=== PATIENT | female | born 1990 | race Caucasian/White ===

== ENCOUNTER 2018-02-20 14:54 | Inpatient (IN) | payer OTHER ==
[2018-02-20] MEDS ORDERED: Betamet Acet/Betamet Na Ph 30 MG/5 ML VIAL ONE (16:23)
[2018-02-20] MEDS ORDERED: Labetalol HCl 100 MG/20 ML VIAL ONE (16:56)
[2018-02-20] MEDS ORDERED: hydrALAZINE 20 MG/ML VIAL ONE (16:56)
[2018-02-20] MEDS ORDERED: Betamet Acet/Betamet Na Ph 30 MG/5 ML VIAL IM SCH (17:00)
[2018-02-20] MEDS ORDERED: Dextrose 5%-Lactated Ringers 1,000 ML IV SCH (17:00)
[2018-02-20] MEDS ORDERED: hydrALAZINE 20 MG/ML VIAL SLOW IVP PRN ×2 (17:00→18:14)
[2018-02-20] MEDS ORDERED: Calcium Gluc 4.6 MEQ/10 ML (100 MG/ML) SLOW IVP PRN (17:01)
[2018-02-20] MEDS ORDERED: Promethazine HCl 25 MG/ML VIAL IM PRN (17:02)
[2018-02-20] MEDS ORDERED: Ondansetron HCl/PF 4 MG/2 ML Vial IVP PRN (17:02)
[2018-02-20 17:17] LABS: Hemoglobin 12.4 g/dL (12.0-16.0); Mean Corpuscular HGB CONC 34.9 g/dL (32.0-36.0); Mean Corpuscular Hemoglobin 29.2 pg (27.0-31.0); Mean Corpuscular Volume 83.6 fL (78.0-98.0); Mean Platelet Volume 10.9 fL (7.4-10.4); Platelet Count 139 thou/uL (130-400); RBC Distribution Width 12.6 % (11.5-14.5); Red Blood Cell (RBC) Count 4.25 mill/uL (4.20-5.40)
[2018-02-20 17:19] LABS: Uric Acid 6.1 mg/dL (2.6-6.0)
[2018-02-20] MEDS: Magnesium Sulfate 20 gm/500 ml 20 GM/500 ML BAG IVPB SCH (17:45)
[2018-02-20 17:47] LABS: Hep B Surf Ag Non-Reactive S/CO (NonReactive)
[2018-02-20 18:12] LABS: Syphilis Antibody Nonreactive (Nonreactive); Syphilis Antibody Index 0.04 S/CO (<1.00 Non-Reactive)
[2018-02-20 20:05] LABS: Creatinine, Urine 42.49 mg/dL (47-110)
[2018-02-20 20:43] VITALS: BMI 35.6
[2018-02-20] MEDS ORDERED: Labetalol 100 MG TAB PO SCH (21:00)
[2018-02-20] MEDS: Labetalol 100 MG TAB PO SCH (21:11)
[2018-02-20] MEDS: Dextrose 5%-Lactated Ringers 1,000 ML IV SCH (22:07)
[2018-02-21] MEDS: Magnesium Sulfate 20 gm/500 ml 20 GM/500 ML BAG IVPB SCH ×3 (02:40→22:25)
[2018-02-21] MEDS: Betamet Acet/Betamet Na Ph 30 MG/5 ML VIAL IM SCH (05:25)
[2018-02-21 07:42] LABS: #Lymphocytes 1.5 thou/uL (1.20-3.40); #Monocytes 0.2 thou/uL (0.11-0.59); #Neutrophils 11.3 thou/uL (1.40-6.50); %Basophils 0.1 % (0.0-1.0); %Eosinophils 0.1 % (0.0-10.0); %Lymphocytes 11.6 % (21.0-51.0); %Monocytes 1.6 % (0.0-10.0); %Neutrophils 86.7 % (42.0-75.0); Hemoglobin 13.5 g/dL (12.0-16.0); Mean Corpuscular Hemoglobin 28.9 pg (27.0-31.0); Platelet Count 152 thou/uL (130-400); RBC Distribution Width 12.8 % (11.5-14.5); Red Blood Cell (RBC) Count 4.68 mill/uL (4.20-5.40); White Blood Cell (WBC) Count 13.1 thou/uL (4.8-10.8)
[2018-02-21] MEDS: Labetalol 100 MG TAB PO SCH ×2 (09:53→21:30)
[2018-02-22 08:55] LABS: #Lymphocytes 1.4 thou/uL (1.20-3.40); #Monocytes 0.7 thou/uL (0.11-0.59); #Neutrophils 9.1 thou/uL (1.40-6.50); %Eosinophils 0.2 % (0.0-10.0); %Lymphocytes 12.3 % (21.0-51.0); %Monocytes 6.5 % (0.0-10.0); Hemoglobin 11.8 g/dL (12.0-16.0); Mean Corpuscular HGB CONC 34.4 g/dL (32.0-36.0); Mean Corpuscular Hemoglobin 28.8 pg (27.0-31.0); Mean Corpuscular Volume 83.7 fL (78.0-98.0); Mean Platelet Volume 9.5 fL (7.4-10.4); Platelet Count 154 thou/uL (130-400); RBC Distribution Width 12.9 % (11.5-14.5); Red Blood Cell (RBC) Count 4.09 mill/uL (4.20-5.40); White Blood Cell (WBC) Count 11.3 thou/uL (4.8-10.8)
[2018-02-22] MEDS: Labetalol 100 MG TAB PO SCH ×3 (09:07→20:34)
[2018-02-22] MEDS: Dextrose 5%-Lactated Ringers 1,000 ML IV SCH (17:26)
[2018-02-22] MEDS ORDERED: Zolpidem Tartrate 5 MG TAB PO PRN (21:56)
[2018-02-23] MEDS: hydrALAZINE 20 MG/ML VIAL SLOW IVP PRN ×6 (00:36→19:06)
[2018-02-23] MEDS: Labetalol 100 MG TAB PO SCH ×3 (08:46→21:51)
[2018-02-23 09:32] LABS: Collection Duration 24 hrs
[2018-02-23 09:33] LABS: Urine Total Volume 2000 mL (600-1600)
[2018-02-23 10:00] LABS: Protein - 24 Hr 4280 mg/24 hr (Less than 300); Protein, Urine 214 mg/dL (1-14)
[2018-02-23] MEDS ORDERED: Bicitra 30 ML UDCUP ONE (13:12)
[2018-02-23] MEDS ORDERED: CEFAZOLIN/Water 2 GM/20 ML SYRINGE ONE (13:12)
[2018-02-23] MEDS ORDERED: Ondansetron HCl/PF 4 MG/2 ML Vial ONE ×2 (13:53→15:26)
[2018-02-23] MEDS ORDERED: Ketorolac Tromethamine 30 MG/ML VIAL ONE ×2 (13:53→15:26)
[2018-02-23] MEDS ORDERED: PHENYLEPHRINE-NS 100 MCG/ML 10 ML SYRINGE ONE (13:53)
[2018-02-23] MEDS ORDERED: Morphine PF 1 MG/ML SYR ONE (13:53)
[2018-02-23] MEDS ORDERED: Lidocaine 1% PF 5 ML VIAL ONE (13:53)
[2018-02-23] MEDS ORDERED: Oxytocin 10 UNITS/ML VIAL ONE (13:53)
[2018-02-23] MEDS ORDERED: Bupivacaine 0.75% W/DEXTROSE 8.25% 2 ML AMP ONE (13:53)
[2018-02-23] MEDS ORDERED: Dexamethasone 4 mg/ml Vial ONE (13:53)
[2018-02-23 14:05] LABS: Hemoglobin 12.1 g/dL (12.0-16.0); Mean Corpuscular HGB CONC 34.6 g/dL (32.0-36.0); Mean Corpuscular Hemoglobin 29.4 pg (27.0-31.0); Mean Corpuscular Volume 85.2 fL (78.0-98.0); Platelet Count 153 thou/uL (130-400); RBC Distribution Width 13.1 % (11.5-14.5); White Blood Cell (WBC) Count 12.1 thou/uL (4.8-10.8)
[2018-02-23] MEDS ORDERED: Eucerin (Mineral Oil/Petrolatum,White) 30 gm Jar TOP PRN (14:22)
[2018-02-23] MEDS ORDERED: diphenhydrAMINE 50 MG/ML VIAL IVP PRN (14:22)
[2018-02-23] MEDS ORDERED: Naloxone HCl 0.4 mg/ml Vial IVP PRN ×2 (14:22)
[2018-02-23] MEDS ORDERED: Naloxone HCl 0.4 mg/ml Vial IV PRN (14:22)
[2018-02-23] MEDS ORDERED: Ondansetron HCl/PF 4 MG/2 ML Vial IVP PRN ×3 (14:22→15:43)
[2018-02-23] MEDS ORDERED: Ketorolac Tromethamine 30 MG/ML VIAL IVP PRN (14:22)
[2018-02-23] MEDS ORDERED: Promethazine HCl 25 MG/ML VIAL IM PRN (14:22)
[2018-02-23] MEDS ORDERED: Promethazine HCl 25 MG SUPP PR PRN (14:22)
[2018-02-23] MEDS ORDERED: HYDROmorphone 2 MG/ML VIAL SLOW IVP PRN (14:22)
[2018-02-23] MEDS ORDERED: Meperidine HCl/PF 25 MG/ML VIAL SLOW IVP PRN (14:22)
[2018-02-23] MEDS ORDERED: Ketorolac Tromethamine 30 MG/ML VIAL IVP SCH (14:30)
[2018-02-23] MEDS ORDERED: Communication Order-Pharmacy FS SCH (14:30)
[2018-02-23] MEDS ORDERED: Dexamethasone 20 MG/5 ML VIAL ONE (15:26)
[2018-02-23] MEDS ORDERED: Adacel (T-DAP) 0.5 ML VIAL IM ONE (15:43)
[2018-02-23] MEDS ORDERED: Acetaminophen 325 MG TAB PO PRN (15:43)
[2018-02-23] MEDS ORDERED: diphenhydrAMINE 25 MG CAP PO PRN (15:43)
[2018-02-23] MEDS ORDERED: Simethicone Chewable 80 MG TAB PO PRN (15:43)
[2018-02-23] MEDS ORDERED: Lanolin Ointment 7 GM TUBE TOP PRN (15:43)
[2018-02-23] MEDS ORDERED: Bisacodyl 10 MG SUPP PR PRN (15:43)
[2018-02-23] MEDS ORDERED: NS / Oxytocin 40 units/1000ml 1,000 ML IV SCH (15:45)
[2018-02-23] MEDS ORDERED: Lactated Ringer's 1,000 ML IV SCH (15:45)
[2018-02-23] MEDS ORDERED: hydrALAZINE 20 MG/ML VIAL SLOW IVP PRN (16:07)
[2018-02-23] MEDS ORDERED: Labetalol 100 MG TAB PO SCH (16:30)
[2018-02-23] MEDS ORDERED: Meperidine HCl/PF 25 MG/ML VIAL ONE (17:47)
--- NOTE | 2018-02-23 21:06 | OP ---
DATE OF PROCEDURE: 02/23/2018 ATTENDING STAFF PHYSICIAN: Bobby Lind M.D. SURGEONS: 1. Bobby Lind M.D. 2. Luisa Rogers DO POSTOPERATIVE DIAGNOSES: 1. intrauterine at 34 and 1/7 weeks. 2. Severe preeclampsia. 3. Remote from delivery. POSTOPERATIVE DIAGNOSES: 1. intrauterine at 34 and 1/7 weeks. 2. Severe preeclampsia. 3. Remote from delivery. PROCEDURE: Primary low transverse section. ANESTHESIA: Spinal catheterization. FINDINGS: 1. Severe pre-eclampsia with criteria including blood pressure, proteinuria, edema, and symptomatolo gy. 2. Vigorous male infant, 4 pounds 6 ounces, Apgars pending. 3. Normal uterus, tubes, and ovaries. SPECIMENS REMOVED: Cord blood. COMPLICATIONS: None. BLOOD LOSS: 500 mL (QBR 345 mL). HISTORY AND INDICATIONS: Mrs. Yenny Rosado is a very pleasant patient of [facility] followed at the [facility] for obstetric care. She is a 27-year-old white female, 2, para 0-0-1-0. She presented to the office on the afternoon of 10/21/2017 for routine visit. Her blood pressures were sign ificantly elevated with systolic pressures in the 170s and the diastolics in the 100-110 range. She had 3+ proteinuria on urinalysis. She was immediately sent to Labor and Delivery for evaluation and monitoring. Her first blood pressure on arrival was 180/110. She was extremely nervous and anxious as would be expected. We immediately treated her with hydralazine and ordered blood to confirm diagn osis of a with preeclampsia Her pressures were stabilized and her laboratory studi es returned with an elevated uric acid of 6.1 and a urine protein creatinine ratio of 0.41 and confir altagracia the diagnosis of preeclampsia. She was given steroids to enhance lung maturity and was st arted on magnesium sulfate for seizure prophylaxis and neuro protection. The patient remained stable and her blood pressures were treated until early on the morning of 02/23/2018. She required both la betalol and hydralazine treatment throughout the morning. A serial 24-hour urine collection had been ordered and also returned elevated at greater than 4 grams of proteinuria. A decision was made to p roceed with delivery in discussion with neonatology and the above findings. The patient was now ____ _ 72 hours with magnesium sulfate therapy for greater than 36 hours. The patient and her wer e counseled and questions were answered. Surgical disclosures were signed and placed in the chart. PROCEDURE: After thorough consent and counseling, Mrs. Rosado was taken to the operating room and adequate level of anesthesia was obtained via spinal catheterization. The patient was prepped and dr aped in the usual sterile fashion for abdominal surgery. A David was placed in the bladder, which wa s noted to be draining clear urine. Attention was then turned to performing the primary low transver se section. A Pfannenstiel incision was made, carried sharply to the fascia which was also sharply incised. The midline was identified and the rectus muscles were retracted laterally. The abdominal peritoneal cav ity was entered with usual safeguards carried out. A retractor was placed and a bladder flap was cre ated on the vesicouterine peritoneum. A bladder blade was then placed. A low transverse incision wa s made on the well-developed lower uterine segment. Upon entering the amniotic sac, there is copious amount of clear amniotic fluid visualized. The infant was noted to be vertex presentation in the oc ciput anterior position, still high in the pelvis. Head was delivered and baby was bulb suctioned on the abdomen. Shoulders and body were then delivered. The cord was doubly clamped and cut and the i nfant was handed to the neonatology team in attendance for the delivery. Dr. Serrato was the attendin is manager. The infant was a viable male weighing 4 pounds 6 ounces with Apgars pending. Cord blood was obtained. The placenta was manually removed from the uterus. The uterus was exteriorized and good tone was noted. The low transverse incision was closed with a running locking ligature of # 1 chromic. A second imbricating layer was placed to facilitate strength and hemostasis. The vesicou terine peritoneum was reapproximated to the lower segment with a running ligature of 2-0 Monocryl. G ood hemostasis was noted. The uterus, fallopian tubes and ovaries were inspected and all were noted to be normal. The posterior cul-de-sac and gutters were cleared of clot and fluid. The uterus was r eturned to the abdomen. Lap, sponge, and needle counts were correct. The peritoneum was then closed with a running ligature of 2-0 Vicryl. The rectus muscles were reapproximated in the midline with i nterrupted ligatures of 2-0 Vicryl. The fascia was closed with 2 ligatures of 0 Vicryl suture which were tied in the midline. Good fascial integrity was noted. The incision was again irrigated with c opious amount of warm normal saline. Hemostasis was obtained with Bovie cauterization. The subcutan eous tissue was closed with interrupted ligatures of 2-0 plain. The skin was then closed with a subc uticular stitch of 4-0 Monocryl and dressed with Dermabond. Lap, sponge, and needle counts were deena ect x3. Estimated blood loss during the surgical procedure was approximately 500 mL. Calculated QBL followin g the procedure was 345 mL The patient was taken to the recovery room in good condition. Immediately following surgery, the patient and family were made aware of the surgical procedure and o perative findings. Questions were answered to their satisfaction. The baby was stable and doing wel l in the intensive care unit under the care of Dr. Serrato. The patient and her family were very appreciative of the care received here at [facility].
[2018-02-23] MEDS ORDERED: Enoxaparin Sodium 30 MG/0.3 ML SYRINGE SC SCH (22:00)
[2018-02-24] MEDS ORDERED: Meperidine HCl/PF 25 MG/ML VIAL IM PRN (02:30)
[2018-02-24] MEDS ORDERED: Zolpidem Tartrate 5 MG TAB PO PRN ×2 (02:30)
[2018-02-24 06:12] LABS: #Lymphocytes 2.1 thou/uL (1.20-3.40); #Monocytes 0.8 thou/uL (0.11-0.59); #Neutrophils 8.1 thou/uL (1.40-6.50); %Basophils 0.2 % (0.0-1.0); %Eosinophils 0.2 % (0.0-10.0); %Lymphocytes 19.2 % (21.0-51.0); %Monocytes 7.4 % (0.0-10.0); Hemoglobin 11.5 g/dL (12.0-16.0); Mean Corpuscular Volume 85.3 fL (78.0-98.0); Platelet Count 149 thou/uL (130-400); RBC Distribution Width 12.9 % (11.5-14.5); Red Blood Cell (RBC) Count 3.94 mill/uL (4.20-5.40); White Blood Cell (WBC) Count 11.1 thou/uL (4.8-10.8)
[2018-02-24] MEDS: Ibuprofen 800 MG TAB PO SCH ×3 (07:36→22:18)
[2018-02-24] MEDS: Labetalol 100 MG TAB PO SCH ×4 (08:02→22:18)
[2018-02-24] MEDS: Betamet Acet/Betamet Na Ph 30 MG/5 ML VIAL IM SCH (08:02)
[2018-02-24] MEDS: Ferrous Sulfate 325 MG TAB PO SCH ×3 (08:03→22:11)
[2018-02-24] MEDS: Docusate Calcium (SURFAK) 240 MG CAP PO SCH ×3 (08:03→22:18)
[2018-02-24] MEDS: HYDROcodone/Acetaminophen 5/325 mg Tablet PO PRN ×3 (08:53→22:20)
[2018-02-24] MEDS: Prenatal Vitamin 1 TAB PO SCH (09:09)
[2018-02-24] MEDS ORDERED: Triamterene/Hydrochlorothiazide 37.5 mg/25 mg Tablet PO SCH (14:45)
[2018-02-25] MEDS: Ibuprofen 800 MG TAB PO SCH ×3 (05:54→20:59)
[2018-02-25] MEDS: Triamterene/Hydrochlorothiazide 37.5 mg/25 mg Tablet PO SCH (09:48)
[2018-02-25] MEDS: Labetalol 100 MG TAB PO SCH ×3 (09:48→20:59)
[2018-02-25] MEDS: Prenatal Vitamin 1 TAB PO SCH (09:48)
[2018-02-25] MEDS: Docusate Calcium (SURFAK) 240 MG CAP PO SCH ×2 (09:48→20:11)
[2018-02-25] MEDS: HYDROcodone/Acetaminophen 5/325 mg Tablet PO PRN ×3 (09:51→20:11)
[2018-02-25] MEDS: Ferrous Sulfate 325 MG TAB PO SCH (10:52)
[2018-02-26] MEDS: Ferrous Sulfate 325 MG TAB PO SCH ×3 (01:30→22:14)
[2018-02-26] MEDS: HYDROcodone/Acetaminophen 5/325 mg Tablet PO PRN ×3 (04:19→13:30)
[2018-02-26] MEDS: Ibuprofen 800 MG TAB PO SCH ×3 (04:55→22:12)
[2018-02-26] MEDS: Triamterene/Hydrochlorothiazide 37.5 mg/25 mg Tablet PO SCH (10:03)
[2018-02-26] MEDS: Labetalol 100 MG TAB PO SCH ×2 (10:03→22:11)
[2018-02-26] MEDS: Docusate Calcium (SURFAK) 240 MG CAP PO SCH ×2 (10:04→22:12)
[2018-02-26] MEDS: Prenatal Vitamin 1 TAB PO SCH (10:04)
[2018-02-26] MEDS ORDERED: Labetalol 100 MG TAB PO SCH (12:15)
[2018-02-27] MEDS: Ibuprofen 800 MG TAB PO SCH ×2 (04:35→14:07)
[2018-02-27] MEDS: HYDROcodone/Acetaminophen 5/325 mg Tablet PO PRN ×3 (04:35→14:07)
[2018-02-27] MEDS: Prenatal Vitamin 1 TAB PO SCH (08:53)
[2018-02-27] MEDS: Docusate Calcium (SURFAK) 240 MG CAP PO SCH (08:53)
[2018-02-27] MEDS: Labetalol 100 MG TAB PO SCH (08:53)
[2018-02-27] MEDS: Triamterene/Hydrochlorothiazide 37.5 mg/25 mg Tablet PO SCH (08:54)
[2018-02-27] MEDS: Ferrous Sulfate 325 MG TAB PO SCH (08:56)
[2018-02-27 11:47] VITALS: BP 126/76; TEMP 98.8
== END 2018-02-27 14:12 | disposition home or self-care (01) | DRG 766 ==
LOC: L&D/OP 14:54 → L&D 17:03 → OBSVTOIN 17:03 → L&D 02-23 19:11 → 3SW 02-24 05:49
PROVIDERS: ADMIT Obstetrics & Gynecology; ATTEND Obstetrics & Gynecology
PROC: 10D00Z1 Extraction of Products of Conception, Low, Open Approach (ICD-10-PCS; principal; 2018-02-23)
DX: O14.14 Severe pre-eclampsia complicating childbirth (principal); Z3A.33 33 weeks gestation of pregnancy; Z37.0 Single live birth
CPT/HCPCS: 36415; 51702; 81003; 82570; 83615; 84156; 84450; 84460; 84550; 85025; 85027; 86780; 86850; 86900; 86901; 87340; 90715; J0360; J0702; J1100; J1650; J1885; J2001; J2175; J2274; J2405; J2590; J3475; J3490

== ENCOUNTER 2018-04-03 05:59 | Emergency (ER) | payer OTHER ==
[2018-04-03] MEDS ORDERED: Morphine 2 MG/ML SYRINGE ONE (06:15)
[2018-04-03] MEDS ORDERED: Ondansetron HCl/PF 4 MG/2 ML Vial ONE (06:15)
[2018-04-03 06:52] LABS: #Basophils 0.1 thou/uL (0.0-0.2); #Eosinphils 0.1 thou/uL (0.0-0.7); #Lymphocytes 2.3 thou/uL (1.20-3.40); #Monocytes 0.5 thou/uL (0.11-0.59); #Neutrophils 8.1 thou/uL (1.40-6.50); %Basophils 0.7 % (0.0-1.0); %Eosinophils 0.7 % (0.0-10.0); %Lymphocytes 20.5 % (21.0-51.0); %Monocytes 4.7 % (0.0-10.0); %Neutrophils 73.5 % (42.0-75.0); Hemoglobin 13.4 g/dL (12.0-16.0); Mean Corpuscular HGB CONC 33.9 g/dL (32.0-36.0); Mean Corpuscular Hemoglobin 28.4 pg (27.0-31.0); Mean Corpuscular Volume 83.6 fL (78.0-98.0); Mean Platelet Volume 7.7 fL (7.4-10.4); Platelet Count 234 thou/uL (130-400); RBC Distribution Width 11.8 % (11.5-14.5); Red Blood Cell (RBC) Count 4.72 mill/uL (4.20-5.40); White Blood Cell (WBC) Count 11.1 thou/uL (4.8-10.8)
[2018-04-03 07:20] LABS: ALT (SGPT) 42 U/L (8-55); AST (SGOT) 27 U/L (5-34); Albumin 4.6 g/dL (3.5-5.0); Alkaline Phosphatase 108 U/L (40-150); Anion Gap 15 mmol/L (10-20); BUN (Urea Nitrogen) 11 mg/dL (7.0-18.7); Bilirubin, Total 0.3 mg/dL (0.2-1.2); Calc. Creatinine Clearance 0 mL/min (70-130); Carbon Dioxide 22 mmol/L (22-29); Chloride 105 mmol/L (98-107); Estimated GFR-MDRD Greater than 90; Globulin 3.1 g/dL (2.4-3.5); Glucose 105 mg/dL (70-105); Lipase 12 U/L (8-78); Potassium 3.8 mmol/L (3.5-5.1); Protein, Total 7.7 g/dL (6.0-8.3); Sodium 138 mmol/L (136-145)
[2018-04-03] MEDS ORDERED: Morphine 4 MG/ML VIAL ONE (07:26)
--- NOTE | 2018-04-03 08:09 | ULT ---
SONOGRAM ABDOMEN COMPLETE: Date: 04/03/18 HISTORY: Upper abdomen pain. FINDINGS: Multiple shadowing echogenic stones are apparent within the dependent portion of the gallbladder lume n. No gallbladder wall thickening or pericholecystic fluid. Common duct is 0.4 cm. Liver unremarkable without focal mass or intrahepatic biliary dilatation. No free fluid. Spleen measures up to 15.5 cm without focal abnormality. The kidneys and visualized portions of the abdominal aorta, IVC, and pancr eas are unremarkable. IMPRESSION: 1. Cholelithiasis. No evidence of acute biliary obstruction. 2. Moderate splenomegaly. Cause is not evident. POS: [facility]
== END 2018-04-03 07:58 | disposition home or self-care (01) ==
LOC: ERS 05:59
DX: K80.20 Calculus of gallbladder without cholecystitis without obstruction (principal)
CPT/HCPCS: 36415; 76700; 80053; 83690; 85025; 96374; 96375; 96376; J2270; J2405

== ENCOUNTER 2018-04-14 14:29 | Outpatient (CLI) | payer OTHER ==
[2018-04-14 15:05] LABS: #Basophils 0.1 thou/uL (0.0-0.2); #Eosinphils 0.1 thou/uL (0.0-0.7); #Lymphocytes 2.8 thou/uL (1.20-3.40); #Monocytes 0.6 thou/uL (0.11-0.59); #Neutrophils 4.5 thou/uL (1.40-6.50); %Eosinophils 0.7 % (0.0-10.0); %Lymphocytes 35.3 % (21.0-51.0); %Monocytes 6.9 % (0.0-10.0); %Neutrophils 56.1 % (42.0-75.0); Hemoglobin 14.2 g/dL (12.0-16.0); Mean Corpuscular HGB CONC 34.1 g/dL (32.0-36.0); Mean Corpuscular Hemoglobin 28.2 pg (27.0-31.0); Mean Corpuscular Volume 82.8 fL (78.0-98.0); Platelet Count 271 thou/uL (130-400); RBC Distribution Width 11.8 % (11.5-14.5); Red Blood Cell (RBC) Count 5.03 mill/uL (4.20-5.40); White Blood Cell (WBC) Count 7.9 thou/uL (4.8-10.8)
[2018-04-14 15:12] LABS: BHCG - Serum Negative (NEGATIVE); Pregs Control Background? CLEAR/WHITE (CLR/WHITE); Pregs Control Bar Appear? YES (CONTROL BAR)
[2018-04-14 15:26] LABS: ALT (SGPT) 41 U/L (8-55); AST (SGOT) 24 U/L (5-34); Albumin 4.9 g/dL (3.5-5.0); Alkaline Phosphatase 124 U/L (40-150); Anion Gap 16 mmol/L (10-20); BUN (Urea Nitrogen) 13 mg/dL (7.0-18.7); Bilirubin, Direct 0.1 mg/dL (0.1-0.3); Bilirubin, Total 0.3 mg/dL (0.2-1.2); Calc. Creatinine Clearance 0 mL/min (70-130); Calcium 9.2 mg/dL (7.8-10.44); Carbon Dioxide 20 mmol/L (22-29); Chloride 107 mmol/L (98-107); Estimated GFR-MDRD 85; Glucose 123 mg/dL (70-105); Potassium 4.1 mmol/L (3.5-5.1); Protein, Total 7.8 g/dL (6.0-8.3); Sodium 139 mmol/L (136-145)
== END 2018-04-14 14:30 | disposition home or self-care (01) ==
LOC: LABBT 14:29
PROVIDERS: ATTEND Surgery
DX: Z01.812 Encounter for preprocedural laboratory examination (principal); K80.20 Calculus of gallbladder without cholecystitis without obstruction
CPT/HCPCS: 80048; 80076; 84703; 85025

== ENCOUNTER 2018-04-15 08:11 | Day surgery (SDC) | payer OTHER ==
[2018-04-14 14:43] VITALS: BMI 31.7
[2018-04-15] MEDS ORDERED: CEFAZOLIN/Water 2 GM/20 ML SYRINGE ONE (08:56)
[2018-04-15] MEDS ORDERED: Fentanyl 100 MCG/2 ML VIAL ONE ×2 (10:01→11:38)
[2018-04-15] MEDS ORDERED: Bupivacaine/Epinephrine 0.25% 30 ML VIAL ONE (10:02)
[2018-04-15] MEDS ORDERED: HYDROcodone/Acetaminophen 5/325 mg Tablet ONE (12:18)
--- NOTE | 2018-04-15 13:40 | OP ---
DATE OF PROCEDURE: 04/15/2018 PREOPERATIVE DIAGNOSIS: Acute cholecystitis. POSTOPERATIVE DIAGNOSIS: Acute cholecystitis. PROCEDURE: Laparoscopic cholecystectomy. SURGEON: Dr. Jacky Hernandez ANESTHESIA: General. ESTIMATED BLOOD LOSS: Minimal. COMPLICATIONS: None. SPECIMEN: Gallbladder. FINDINGS: Cholecystitis. PROCEDURE IN DETAIL: The patient was taken to the Operating Room and laid supine on the Operating Saritha m table. After general anesthetic was obtained, the abdomen was prepped and draped in a sterile fashi on. A curved incision was made below the umbilicus. Cautery was used to dissect down to the umbilical fascia. Umbilical fascia was incised and held up using a Fabian. The abdominal cavity was entered us ing a Khushi clamp. Holding stitch of Vicryl was placed on each side of the fascia. Berumen trocar was placed. High-flow pneumoperitoneum was obtained. An upper midline 5-mm port and two right upper quadr ant 5-mm ports were placed under direct camera visualization. The gallbladder was retracted from the gallbladder fossa. The peritoneum of the gallbladder was opened anteriorly and posteriorly. The criti maria view triangle was seen showing only the cystic duct and cystic artery branching from medial to la teral. There were no other branching structures. Two clips were placed proximally on the cystic duct and one laterally. It was cut using laparoscopic scissors. The cystic artery was taken in the same wa y. Electrocautery was then used to dissect the gallbladder out of the gallbladder fossa. The gallblad riri was placed in an Endo catch bag and brought out through the Berumen. There was no bleeding or bile in the liver bed. The cystic duct stump and cystic artery stump were intact without evidence of extr avasation or bleeding. All port sites were infiltrated using local anesthesia. All ports were removed under camera visualization. Pneumoperitoneum was let down. The Vicryl was used to close the fascial defect below the umbilicus. All incisions were irrigated and closed using 4-0 Monocryl and DermaBond. The patient was en route to Recovery in stable condition. All instrument counts, needle counts and l ap counts were correct.
[2018-04-15] MEDS ORDERED: PROPOFOL 200 MG/20 ML VIAL ONE (16:37)
[2018-04-15] MEDS ORDERED: Glycopyrrolate 0.2 MG/ML 5 ML SYRINGE ONE (16:37)
[2018-04-15] MEDS ORDERED: Dexamethasone 20 MG/5 ML VIAL ONE (16:37)
[2018-04-15] MEDS ORDERED: Ketorolac Tromethamine 30 MG/ML VIAL ONE (16:37)
[2018-04-15] MEDS ORDERED: Ondansetron HCl/PF 4 MG/2 ML Vial ONE (16:37)
[2018-04-15] MEDS ORDERED: Lidocaine 1% PF 5 ML VIAL ONE (16:37)
== END 2018-04-15 12:50 | disposition home or self-care (01) ==
LOC: SDC 08:11
PROVIDERS: ATTEND Surgery
PROC: 0FT44ZZ Resection of Gallbladder, Percutaneous Endoscopic Approach (ICD-10-PCS; principal; 2018-04-15)
DX: K80.12 Calculus of gallbladder with acute and chronic cholecystitis without obstruction (principal); Z79.899 Other long term (current) drug therapy; Z01.812 Encounter for preprocedural laboratory examination
CPT/HCPCS: 80048; 80076; 84703; 85025; 88304; 96374; J1100; J1885; J2001; J2405; J2704; J3010

== ENCOUNTER 2018-05-16 16:54 | Observation (INO) | payer OTHER ==
[2018-05-16] MEDS ORDERED: Dextrose 5% in Water 1,000 ML IV PRN (17:40)
[2018-05-16] MEDS ORDERED: hydrALAZINE 20 MG/ML VIAL SLOW IVP PRN (17:40)
[2018-05-16] MEDS ORDERED: Ondansetron PF 4 MG/2 ML Vial IVP PRN (17:40)
[2018-05-16] MEDS ORDERED: Dextrose 50% Abboject 50 ML SYRINGE SLOW IVP PRN (17:40)
[2018-05-16] MEDS ORDERED: Acetaminophen 1,000 MG in Premix Bag 1 BAG IVPB PRN (17:40)
[2018-05-16] MEDS ORDERED: Ketorolac Tromethamine 30 MG/ML VIAL IVP PRN (17:40)
[2018-05-16] MEDS ORDERED: Calcium Carbonate 500 MG ChewTAB PO PRN (17:40)
[2018-05-16] MEDS ORDERED: Mag-Al 1200 mg/1200 mg/30 ML UDCUP PO PRN (17:40)
[2018-05-16] MEDS ORDERED: Promethazine HCl 25 MG/ML VIAL IM PRN (17:40)
[2018-05-16 18:04] VITALS: BMI 30.1
[2018-05-16] MEDS ORDERED: Morphine 4 MG/ML VIAL ONE (18:09)
[2018-05-16] MEDS: Piperacillin/Tazobactam 3.375 GM in Sodium Chloride 0.9% 100 ML IVPB SCH (18:44)
[2018-05-16] MEDS: D5 1/2 NS w/20 mEq KCL 1,000 ML IV SCH (18:44)
--- NOTE | 2018-05-16 22:04 | HP ---
CHIEF COMPLAINT: Jaundice. HISTORY OF PRESENT ILLNESS: This is a 27-year-old female who had laparoscopic cholecystectomy on for symptomatic gallstones. She now presents with recurrent symptoms, epigastric pain radiat es straight through to her back. I ordered outpatient labs earlier today, which revealed normal WBC and hemoglobin; however, her bilirubin is elevated to 4.4 as well as her AST, ALT, and alkaline phosp hatase. She is being admitted for presumed retained common duct stone. PAST MEDICAL HISTORY: Gallstones. PAST SURGICAL HISTORY: Right knee, D&C, laparoscopic cholecystectomy. MEDICINES TAKEN DAILY: vitamins, Flonase. ALLERGIES: No known drug allergies. SOCIAL HISTORY: Non-smoker. No alcohol. No other drugs. REVIEW OF SYSTEMS: Ten-system review of systems is otherwise negative. PHYSICAL EXAMINATION: HEENT: She has icteric sclerae. Her oropharynx is clear. NECK: No lymphadenopathy. CHEST: Clear. HEART: Regular rate and rhythm. ABDOMEN: Soft, nontender. All incisions are well healed. LABORATORY DATA: White blood cell count is 5, hemoglobin is 14, platelet count is 196, normal differ ential. Total bilirubin 4.4, alkaline phosphatase 295. AST and ALT are 180 and 596. ASSESSMENT: Elevated liver function tests with jaundice, status post laparoscopic cholecystectomy. Her liver function tests were not elevated preop. PLAN: I have discussed with Dr. Romero, who will see her for ERCP. Dr. Sams is going to see her for me this weekend.
[2018-05-17] MEDS: Piperacillin/Tazobactam 3.375 GM in Sodium Chloride 0.9% 100 ML IVPB SCH ×4 (00:41→18:14)
[2018-05-17] MEDS: D5 1/2 NS w/20 mEq KCL 1,000 ML IV SCH ×3 (04:46→22:37)
--- NOTE | 2018-05-17 06:17 | CON ---
DATE OF CONSULTATION: 05/16/2018 REFERRING PHYSICIAN: Dr. Jacky Hernandez. REASON FOR CONSULTATION: Abdominal pain, abnormal LFTs, indicative of possibly common bile duct stone. HISTORY OF PRESENT ILLNESS: Ms. Yenny Rosado is a very pleasant 27-year-old female seen in the room along with patient's , Sanchez. The patient underwent laparoscopic cholecystectomy by Dr. Jacky Hernandez, 3 weeks ago. She did well for 2 weeks. Over the last one week, she has been having abdominal pain, almost like what she had when she had the gallstones. The pain is over the right upper quadrant, point towards the back. She has had nausea. She has no vomiting. There is no history of fever or chills. The pain is worse after intake of food. She also noted some yellowish discoloration of eyes recently. The patient was seen by Dr. Jacky Hernandez this afternoon and had blood tests done. Her LFTs are markedly elevated. Her bilirubin has gone up to 4.5. Her AST is 180, ALT 596, alkaline phosphatase 295, albumin 4.6. The patient had received morphine and appears comfortable at the present time. She says mild pain off and on, but the pain is not as bad as before. She has no relevant history. ALLERGIES: None. SOCIAL HISTORY: The patient is . She does not smoke or drink alcohol. MEDICAL ILLNESSES: Preeclampsia and gestational diabetes with last and had a by Dr. Bobby Lind in 01/2018. She is not taking any medications at the present time. PAST SURGICAL HISTORY: No other previous surgeries. MEDICATIONS: List reviewed. REVIEW OF SYSTEMS: HEENT: No headache, no seizure disorder, no dizziness. Eyes: Site is normal. No diplopia. There is no loss of hearing. Nose: No nose bleed. No sore throat. Respiratory system: No history of chronic cough, hemoptysis, dyspnea. Cardiovascular system: No chest pain, no palpitation, no dyspnea, orthopnea or PND. GI and : As in history of present illness, unremarkable. Musculoskeletal/ Endocrine/Hematological/Neuro/Psychiatry: Unremarkable. PHYSICAL EXAMINATION: GENERAL: This is a very pleasant young female, who appears very comfortable. She has seen in the room along with patient's . VITAL SIGNS: Afebrile, pulse is 80, blood pressure is 140/93. HEENT: Conjunctivae icterus. NECK: Supple. No adenitis or thyromegaly noted. CARDIOVASCULAR SYSTEM: First and second heart sounds normal. LUNGS: Clear to auscultation. ABDOMEN: Soft. Abdomen is minimally tender over the right upper quadrant epigastric area. There is no rebound or guarding. Bowel sounds are active. EXTREMITIES: Reveal no edema. CLINICAL IMPRESSION: 1. A 27-year-old female, status post laparoscopic cholecystectomy, three weeks ago. At that time, her liver function tests were normal. She comes for abdominal pain, nausea, and elevated LFTs. She most likely has retained common bile duct stone. 2. Preeclampsia - gestational diabetes in her , 3 months ago. RECOMMENDATIONS: 1. Clear liquid diet today. 2. ERCP with stone extraction. I did go over the procedure in detail with the patient's and patient. I explained about the procedure and benefits in detail. I also explained the risks like bleeding, sepsis, and pancreatitis, etc. The patient understood the procedure well and agreeable. I will plan for ERCP tomorrow. MATT
[2018-05-17 06:24] LABS: #Eosinphils 0.1 thou/uL (0.0-0.7); #Lymphocytes 2.1 thou/uL (1.20-3.40); #Monocytes 0.4 thou/uL (0.11-0.59); %Eosinophils 2.2 % (0.0-10.0); %Lymphocytes 44.7 % (21.0-51.0); %Monocytes 8.1 % (0.0-10.0); Hemoglobin 12.2 g/dL (12.0-16.0); Mean Corpuscular HGB CONC 33.1 g/dL (32.0-36.0); Mean Corpuscular Hemoglobin 27.1 pg (27.0-31.0); Mean Platelet Volume 7.9 fL (7.4-10.4); Platelet Count 189 thou/uL (130-400); RBC Distribution Width 11.9 % (11.5-14.5); Red Blood Cell (RBC) Count 4.51 mill/uL (4.20-5.40); White Blood Cell (WBC) Count 4.6 thou/uL (4.8-10.8)
[2018-05-17 06:37] LABS: ALT (SGPT) 428 U/L (8-55); AST (SGOT) 120 U/L (5-34); Albumin 3.9 g/dL (3.5-5.0); Alkaline Phosphatase 234 U/L (40-150); Anion Gap 14 mmol/L (10-20); BUN (Urea Nitrogen) 4 mg/dL (7.0-18.7); Bilirubin, Total 4.4 mg/dL (0.2-1.2); Calc. Creatinine Clearance 188 mL/min (70-130); Calcium 8.9 mg/dL (7.8-10.44); Carbon Dioxide 22 mmol/L (22-29); Chloride 105 mmol/L (98-107); Estimated GFR-MDRD Greater than 90; Globulin 2.6 g/dL (2.4-3.5); Glucose 95 mg/dL (70-105); Lipase 12 U/L (8-78); Potassium 3.5 mmol/L (3.5-5.1); Protein, Total 6.5 g/dL (6.0-8.3); Sodium 137 mmol/L (136-145)
[2018-05-17] MEDS ORDERED: Morphine 2 MG/ML SYRINGE SLOW IVP PRN (08:00)
[2018-05-17] MEDS ORDERED: Morphine 4 MG/ML VIAL SLOW IVP PRN (08:00)
[2018-05-17] MEDS ORDERED: Fentanyl 100 MCG/2 ML VIAL ONE (09:29)
[2018-05-17] MEDS ORDERED: Iothalamate Meglumine 60% 50 ML VIAL FS ONE ×2 (09:33→12:31)
[2018-05-17] MEDS ORDERED: Indocyanine Green 25 MG/10 ML VIAL ONE (09:33)
[2018-05-17] MEDS ORDERED: Indomethacin 50 MG SUPP ONE (09:35)
[2018-05-17] MEDS ORDERED: Promethazine HCl 25 MG/ML VIAL SLOW IVP PRN (11:37)
[2018-05-17] MEDS ORDERED: HYDROmorphone 2 MG/ML VIAL SLOW IVP PRN (11:37)
[2018-05-17] MEDS ORDERED: Ondansetron HCl/PF 4 MG/2 ML Vial IVP PRN (11:37)
[2018-05-17] MEDS ORDERED: PACU-Morphine 4MG/ML VIAL SLOW IVP PRN (11:37)
[2018-05-17] MEDS ORDERED: Promethazine HCl 25 MG/ML VIAL IM PRN (11:37)
[2018-05-17] MEDS ORDERED: Ketorolac Tromethamine 30 MG/ML VIAL ONE (13:04)
[2018-05-17] MEDS ORDERED: PROPOFOL 200 MG/20 ML VIAL ONE (13:04)
[2018-05-17] MEDS ORDERED: Lidocaine 1% PF 5 ML VIAL ONE (13:04)
[2018-05-17] MEDS ORDERED: Ondansetron PF 4 MG/2 ML Vial ONE (13:04)
[2018-05-17] MEDS ORDERED: Dexamethasone 20 MG/5 ML VIAL ONE (13:04)
--- NOTE | 2018-05-17 13:32 | RAD ---
ERCP: Date: 05/17/18 HISTORY: Cholelithiasis. FINDINGS/IMPRESSION: Nine spot fluoroscopic intraoperative images during an ERCP demonstrate opacification of the common b ile duct and some of the hepatic ducts without persistent filling defects. POS: [facility]
--- NOTE | 2018-05-17 14:39 | PRG ---
DATE OF SERVICE: 05/17/2018 SUBJECTIVE: Ms. Rosado is a 27-year-old woman, who is 1-month status post laparoscopic cholecystec stephany. The patient presented with recurrent epigastric to right upper quadrant abdominal pain. Clini maria and radiographic examination was suspicious for acute choledocholithiasis. The patient is placed on observation. She underwent an uneventful ERCP today with extraction of common bile duct stone. She is awake and alert, reporting adequate pain control. PHYSICAL EXAMINATION: VITAL SIGNS: Currently includes blood pressure 120/80, pulse 78, respiratory rate is 18, temperature 98.5 degrees Fahrenheit, oxygen saturation 95% on room air. HEART: Reveals regular rate and rhythm, no murmurs or gallops auscultated. LUNGS: Clear to auscultation bilaterally. Breathing is regular and unlabored. ABDOMEN: Soft and mildly tender to palpation with no gross rebound tenderness present. NEUROLOGICAL EXAMINATION: Reveals no focal deficits present. LABORATORY FINDINGS: Today, which was the preprocedure labs includes the CBC with 4600 white blood c ells, hemoglobin and hematocrit 12.2 and 37.0 respectively. Platelet count is 189,000. Metabolic pr ofile: Sodium 137, potassium is 3.5, chloride is 105, bicarbonate 22, BUN 4, creatinine 0.63, glucos e 95, total bilirubin 4.4, AST and ALT 120 and 428 respectively. Serum alkaline phosphatase is 234. IMPRESSION: 1. Status post laparoscopic cholecystectomy. 2. Immediately status post endoscopic retrograde cholangiopancreatography with common bile duct ston e extraction. PLAN: Continue clear liquid diet. Advance diet as tolerated. The patient is to ambulate ad puja. W e will repeat laboratory studies tomorrow and trend LFTs. Anticipate discharge tomorrow.
[2018-05-17] MEDS ORDERED: Artificial Tear Sol 15 ML BOT EA EYE PRN (16:23)
[2018-05-18] MEDS: Piperacillin/Tazobactam 3.375 GM in Sodium Chloride 0.9% 100 ML IVPB SCH ×2 (00:19→05:34)
[2018-05-18] MEDS: D5 1/2 NS w/20 mEq KCL 1,000 ML IV SCH ×2 (04:06→05:35)
[2018-05-18 04:37] LABS: #Eosinphils 0.1 thou/uL (0.0-0.7); #Lymphocytes 2.4 thou/uL (1.20-3.40); #Monocytes 0.5 thou/uL (0.11-0.59); #Neutrophils 3.9 thou/uL (1.40-6.50); %Basophils 0.1 % (0.0-1.0); %Eosinophils 1.1 % (0.0-10.0); %Lymphocytes 35.3 % (21.0-51.0); %Monocytes 7.7 % (0.0-10.0); %Neutrophils 55.8 % (42.0-75.0); Hemoglobin 11.9 g/dL (12.0-16.0); Mean Corpuscular Hemoglobin 27.2 pg (27.0-31.0); Mean Corpuscular Volume 82.4 fL (78.0-98.0); Mean Platelet Volume 8.3 fL (7.4-10.4); Platelet Count 191 thou/uL (130-400); Red Blood Cell (RBC) Count 4.37 mill/uL (4.20-5.40); White Blood Cell (WBC) Count 6.9 thou/uL (4.8-10.8)
[2018-05-18 05:01] LABS: Anion Gap 13 mmol/L (10-20); BUN (Urea Nitrogen) 5 mg/dL (7.0-18.7); Calc. Creatinine Clearance 188 mL/min (70-130); Calcium 8.9 mg/dL (7.8-10.44); Carbon Dioxide 23 mmol/L (22-29); Chloride 108 mmol/L (98-107); Estimated GFR-MDRD Greater than 90; Glucose 87 mg/dL (70-105); Magnesium 1.8 mg/dL (1.6-2.6); Potassium 3.6 mmol/L (3.5-5.1); Sodium 140 mmol/L (136-145)
[2018-05-18 05:04] LABS: ALT (SGPT) 391 U/L (8-55); AST (SGOT) 143 U/L (5-34); Albumin 3.7 g/dL (3.5-5.0); Alkaline Phosphatase 213 U/L (40-150); Bilirubin, Direct 2.2 mg/dL (0.1-0.3); Bilirubin, Total 2.9 mg/dL (0.2-1.2); Lipase 341 U/L (8-78); Protein, Total 6.2 g/dL (6.0-8.3)
[2018-05-18 08:05] VITALS: BP 123/85; TEMP 98.5
--- NOTE | 2018-05-18 10:45 | PRG ---
DATE OF SERVICE: 05/18/2018 SUBJECTIVE: Ms. Yenny Rosado is a very pleasant 27-year-old female, status post laparosc opic cholecystectomy 3 weeks ago, that presented with abdominal pain, nausea, vomiting, and also abno rmal LFTs. The findings are suggestive of common bile duct stone. She underwent ERCP with papilloto my and stone extraction yesterday. She had done well overnight without any abdominal pain and nausea . She remains afebrile. The patient is actually doing well. She has had mild elevation of the lipa se, is probably asymptomatic, and more of biochemical elevation of lipase than acute pancreatitis. S he is actually feeling good. PHYSICAL EXAMINATION: GENERAL: Appears comfortable. VITAL SIGNS: Afebrile, pulse is 70, blood pressure 120/76. HEENT: Conjunctivae clear. CARDIOVASCULAR/LUNGS: Within normal limits. ABDOMEN: Soft. No organomegaly. No tenderness. No mass. LABORATORY DATA: CBC normal, WBC is 6900. Chemistry panel shows bilirubin dropping down and also th e LFTs are trending down. Lipase 341 today. RECOMMENDATIONS: 1. Regular diet. 2. The patient can be discharged home today. The patient will come back to me after Thanksdina oakley for a followup visit.
--- NOTE | 2018-05-19 02:04 | DIS-2 ---
DATE OF ADMISSION: 05/16/2018 DATE OF DISCHARGE: 05/18/2018 ADMITTING PHYSICIAN: Dr. Jacky Hernandez. DISCHARGING PHYSICIAN: Dr. Mk Sams. CONSULTATION: GI, Dr. Peggy Romero. PROCEDURE PERFORMED: Endoscopic retrograde cholangiopancreatography with stone evacuation on 018. HOSPITAL COURSE: Ms. Rosado is a 27-year-old female status post laparoscopic cholecystectomy on who is currently her first child, presented back to the emergency department o n the date of admission for acute abdominal pain. The patient has had no problems tolerating diet or with any pain up to this point. The patient was found to have retained common bile duct stone, with elevated bilirubin to 4.4 as well as a transaminitis and elevated alkaline phosphatase. She was adm itted to the surgery mckeon. Dr. Romero with GI was consulted and completed an ERCP that did demons trate a retained common bile duct stone on 05/17/2018, this was evacuated. Patient's pain was greatl y improved. She was able to tolerate a clear liquid diet and then a full diet. She states that she is ready to go home. She has already followed up with Dr. Hernandez for GI. The patient's vital signs have remained stable and she has a follow up with GI after the . On the date of discharge, the patient has been ambulatory, has no distress, no abdominal pain and is tolerating her diet. The patient endorses wanting to go home. The patient was seen at the bedside with her bryan banuelos. DISCHARGE MEDICATIONS: 1. vitamins. 2. Flonase. 3. Tylenol as needed for pain. The patient will be discharged to home. PHYSICAL EXAMINATION: VITAL SIGNS: On the date of discharge, temperature is 98.4, blood pressure 122/82, heart rate is 74, respiratory rate of 16. She is 98% on room air. GENERAL: A 27-year-old female sitting up in bed, in no acute distress. HEENT: Normocephalic, atraumatic. Trachea is midline. NECK: No JVD is appreciated. RESPIRATORY: Equal rise and fall. Bilateral breath sounds. Clear to auscultation upper and lower l obe bilaterally. CARDIOVASCULAR: Regular rate and rhythm. No murmurs are appreciated. Strong pulses. ABDOMEN: Obese. Her surgery sites are intact, has no pain, no grimace, no masses or guarding. PELVIS: Deferred. MUSCULOSKELETAL: Moves extremities well. PSYCHIATRIC: Normal mood and affect. NEUROLOGIC: Alert and oriented to person, place, time, and event. SKIN: [place], warm, and dry. LABORATORY DATA: At the date of discharge, white blood cell count is 6.9, platelets are 191, hemoglo bin and hematocrit 11.9 and 36.0 respectively. Chemistry: Sodium is 140, potassium is 3.6, chloride is 108, CO2 is 23, creatinine is 0.63, and a glucose of 87, BUN is 5. Her direct bilirubin is 2.2, total bilirubin is 2.9, which has improved from 4.4 on arrival. AST and ALT 143 and 391 respectively and alkaline phosphatase is 213. Patient's lipase is 341. Again, the patient will be discharged home. Follow up will be with Dr. Romero. Dr. Hernandez as ne eded. We have answered all questions with the patient at bedside. Patient was given strict return p recautions if any symptoms do arise. She verbalized understanding of the same. She was seen with he r . The patient was evaluated by Dr. Mk Sams. Greater than 30 minutes was taken in discharge planning of this patient.
--- NOTE | 2018-05-19 15:55 | OP ---
DATE OF PROCEDURE: 05/17/2018 OPERATIVE PROCEDURE: Endoscopic retrograde cholangiopancreatography with papillotomy, endoscopic retrograde cholangiopancreatography with balloon extraction of the common bile duct stone with a balloon size 12-15 mm. PREOPERATIVE DIAGNOSIS: A 27-year-old female status post laparoscopic cholecystectomy three weeks ago. She comes back with abdominal pain, nausea, and the pain is similar to the pain she had before the surgery and also has elevated LFTs. The symptoms are strongly suggestive of common bile duct stone. POSTOPERATIVE DIAGNOSES: 1. Normal caliber common bile duct. 2. Extraction of pigmented stone, 1.5 cm size. PROCEDURE IN DETAIL: The patient was intubated and was given sedation by Anesthesia Department. A bite block was placed. A PentWanelo video duodenoscope under direct vision was passed down the oropharynx, past the GE junction, into the stomach and subsequently into descending duodenum. The papilla was cannulated. The papilla appeared flat and there is no bile drainage noted. The cannulation was achieved over a guidewire very easily. However, the fluoroscopy showed the guidewire to go into the pancreatic duct. There is only once injection given in to the pancreatic duct. Subsequently, flouroscopy used to guide the wire. The procedure was somewhat difficult because of the wire kept going into the pancreatic duct. The scope was in good position and the papilla was at 12 o'clock and easily cannulated with guidewire. Everytime the guidewire was advanced into the pancreatic duct. There is no injection given. . Finally, was able to cannulate the bile duct selectively. Injection of the common bile duct does show normal caliber bile duct, but does show a filling defect seen. A generous papillotomy made at 12 o'clock position. Following the papillotomy, there is brisk biliary drainage noted. The bile appears to be very clear. There is one small tiny stone came out. Subsequently , a biliary balloon size 12 mm and 15 mm placed in the bile duct and the duct was swept several times_. There is a large pigmented stones came out. Subsequently, occlusion cholangiogram shows no more filling defects. The bile duct is emptied very promptly. The stomach was decompressed. The scope removed. RECOMMENDATIONS: 1. Repeat LFTs tomorrow. 2. . If the patient has no untoward side effects, may consider discharge home. [facility]
== END 2018-05-18 10:15 | disposition home or self-care (01) ==
LOC: SURG A 17:36
PROVIDERS: ADMIT Surgery; ATTEND Surgery
PROC: 0FC98ZZ Extirpation of Matter from Common Bile Duct, Via Natural or Artificial Opening Endoscopic (ICD-10-PCS; principal; 2018-05-17)
DX: K80.50 Calculus of bile duct without cholangitis or cholecystitis without obstruction (principal)
CPT/HCPCS: 36415; 74330; 80048; 80053; 80076; 83690; 83735; 84100; 85025; 96361; 96365; 96366; 96375; 96376; C1769; G0378; J0131; J0360; J1100; J1610; J1885; J2001; J2270; J2405; J2543; J2704; J3010; J7050; Q9961

== ENCOUNTER 2020-04-01 02:30 | Inpatient (IN) | payer OTHER ==
[2020-04-01 03:34] VITALS: BMI 37.2
[2020-04-01] MEDS ORDERED: Ondansetron PF 4 MG/2 ML Vial IVP PRN ×4 (03:45→07:34)
[2020-04-01] MEDS ORDERED: hydrALAZINE 20 MG/ML VIAL SLOW IVP PRN ×2 (03:45→07:34)
[2020-04-01] MEDS ORDERED: Bicitra 30 ML UDCUP PO SCH (03:45)
[2020-04-01] MEDS ORDERED: Ampicillin 2 GM in Sodium Chloride 0.9% 100 ML IVPB SCH (03:45)
[2020-04-01] MEDS ORDERED: Azithromycin 500 MG in Sodium Chloride 0.9% 250 ML 250 ML IVPB SCH (03:45)
[2020-04-01] MEDS ORDERED: CEFAZOLIN 2 GM in Premix Bag 1 BAG IVPB SCH (03:45)
[2020-04-01] MEDS ORDERED: Lactated Ringer's 1,000 ML IV SCH (03:45)
[2020-04-01] MEDS ORDERED: Promethazine HCl 25 MG/ML VIAL IM PRN ×3 (03:45→07:20)
[2020-04-01 04:17] LABS: Hemoglobin 9.2 g/dL (12.0-16.0); Mean Corpuscular HGB CONC 32.7 g/dL (32.0-36.0); Mean Corpuscular Hemoglobin 24.2 pg (27.0-31.0); Mean Corpuscular Volume 73.9 fL (78.0-98.0); Mean Platelet Volume 11.3 fL (7.4-10.4); Platelet Count 182 thou/uL (130-400); RBC Distribution Width 14.8 % (11.5-14.5); Red Blood Cell (RBC) Count 3.81 mill/uL (4.20-5.40); White Blood Cell (WBC) Count 10.9 thou/uL (4.8-10.8)
[2020-04-01 04:52] LABS: HBSAg Index 0.21 S/CO (0-0.99); Hep B Surf Ag Non-Reactive S/CO (NonReactive); Syphilis Antibody Nonreactive (Nonreactive); Syphilis Antibody Index 0.03 S/CO (<1.00 Non-Reactive)
[2020-04-01] MEDS ORDERED: ePHEDrine 50 MG/ML VIAL ONE (06:01)
[2020-04-01] MEDS ORDERED: Ondansetron PF 4 MG/2 ML Vial ONE (06:01)
[2020-04-01] MEDS ORDERED: Oxytocin 10 UNITS/ML VIAL ONE ×2 (06:01→07:08)
[2020-04-01] MEDS ORDERED: Meperidine HCl/PF 25 MG/ML VIAL SLOW IVP PRN ×2 (06:27→07:20)
[2020-04-01] MEDS ORDERED: L&D-Morphine 4 MG/ML VIAL SLOW IVP PRN ×2 (06:27→07:20)
[2020-04-01] MEDS ORDERED: Ondansetron HCl/PF 4 MG/2 ML Vial IVP PRN ×2 (06:27→07:20)
[2020-04-01] MEDS ORDERED: HYDROmorphone 2 MG/ML VIAL SLOW IVP PRN ×2 (06:27→07:20)
[2020-04-01] MEDS ORDERED: Promethazine HCl 25 MG SUPP PR PRN ×2 (06:28→07:20)
[2020-04-01] MEDS ORDERED: Naloxone HCl 0.4 mg/ml Vial IV PRN ×2 (06:28→07:20)
[2020-04-01] MEDS ORDERED: Naloxone HCl 0.4 mg/ml Vial IVP PRN ×4 (06:28→07:20)
[2020-04-01] MEDS ORDERED: Communication Order-Pharmacy FS SCH ×2 (06:30→07:30)
[2020-04-01] MEDS ORDERED: Methylergonovine 0.2 MG/ML VIAL ONE (06:39)
[2020-04-01] MEDS ORDERED: Carboprost 250 MCG/ML AMP ONE (06:39)
[2020-04-01] MEDS ORDERED: diphenhydrAMINE 50 MG/ML VIAL IVP PRN (07:20)
[2020-04-01] MEDS ORDERED: Meperidine HCl/PF 25 MG/ML VIAL IM PRN (07:34)
[2020-04-01] MEDS ORDERED: diphenhydrAMINE 25 MG CAP PO PRN (07:34)
[2020-04-01] MEDS ORDERED: Acetaminophen 325 MG TAB PO PRN (07:34)
[2020-04-01] MEDS ORDERED: Bisacodyl 10 MG SUPP PR PRN (07:34)
[2020-04-01] MEDS ORDERED: Misoprostol 200 MCG TAB PR PRN (07:34)
[2020-04-01] MEDS ORDERED: Lanolin Ointment 7 GM TUBE TOP PRN (07:34)
[2020-04-01] MEDS ORDERED: NS / Oxytocin 40 units/1000ml 1,000 ML IV SCH (07:45)
[2020-04-01 08:47] LABS: SARS-CoV-2 NAA Rapid Test Not Detected (NotDetected)
[2020-04-01] MEDS ORDERED: FLU VACC QS2020-21(6MOS UP)/PF 60 MCG/0.5 ML SYRINGE IM ONE (09:00)
[2020-04-01] MEDS: Prenatal Vitamin 1 TAB PO SCH (11:22)
[2020-04-01] MEDS: Ferrous Sulfate 325 MG TAB PO SCH ×2 (11:22→21:19)
[2020-04-01] MEDS: Docusate Calcium (SURFAK) 240 MG CAP PO SCH ×2 (11:22→21:19)
[2020-04-01] MEDS ORDERED: Morphine 2 MG/ML VIAL SLOW IVP PRN (13:20)
--- NOTE | 2020-04-01 13:30 | OP ---
DATE OF PROCEDURE: 04/01/2020 PREOPERATIVE DIAGNOSES: 1. Twin gestation at 35 and 5/7th weeks. 2. spontaneous rupture of membranes. 3. Prior section. POSTOPERATIVE DIAGNOSES: 1. Twin gestation at 35 and 5/7th weeks. 2. spontaneous rupture of membranes. 3. Prior section. PROCEDURE PERFORMED: Repeat low-transverse section. ANESTHESIA: Spinal catheterization. FINDINGS: 1. Twin gestation, dichorionic-diamniotic. 2. Spontaneous rupture of membranes. 3. Minimal scarring and adhesions from previous. 4. Twin A, female , 6 pounds 4 ounces, Apgars 6 and 8; twin B, male infant, 5 pounds 14 ounces, Apgars 7 and 8. 5. Normal uterus, tubes, and ovaries. COMPLICATIONS: None. SPECIMENS REMOVED: Cord blood and then placenta to pathology secondary to delivery and twin gestation. ESTIMATED BLOOD LOSS: Approximately 800 mL (QBL pending). HISTORY AND INDICATIONS: Mrs. Yenny Rosado is a very pleasant 29-year-old white female, 3, para 0-1-1-1, who is followed in my clinic for obstetric care. Her is complicated by di-di twin gestation, history of preeclampsia, previous , gestational hypertension, and gestational diabetes. She received excellent care. She has been undergoing testing weekly secondary to twins and gestational hypertension. Yenny was seen yesterday for visit. Her blood pressures were creeping up slightly and decision was made to proceed with steroids secondary to her history of preeclampsia and delivery. We also increased her blood pressure medications for her gestational hypertension. NST was reactive. She was sent home to bed rest for followup on Saturday. The patient called at approximately 2:30 this morning, complaining of leaking fluid. She was instructed to present to Labor and Delivery, where PSROM was confirmed. She was given antibiotics for GBS prophylaxis secondary to unknown status. She was prepared for repeat . Questions were answered to the patient and family satisfaction. Surgical disclosures were signed and placed in the chart. DESCRIPTION OF PROCEDURE: After thorough consent and counseling, Mrs. Rosado was taken to the operating room and an adequate level of anesthesia was obtained via spinal catheterization. The patient was prepped and draped in usual sterile fashion for abdominal surgery. A David was placed in the bladder, which was drained of clear urine. A team time-out was performed per protocol. Attention was then turned to performing the repeat low-transverse section. A Pfannenstiel incision was made and the old scar was excised. The incision was carried sharply to the fascia, which was also sharply incised. The midline was identified and the rectus muscles were retracted laterally. A retractor was placed and a bladder flap was created on the vesicouterine peritoneum. A bladder blade was then placed. A low-transverse incision was made on the well-developed lower uterine segment. Upon entering the amniotic sac of twin A, a copious amount of very lightly stained meconium fluid was noted. The infant was noted to be in juan maneul breech presentation. The breech was carefully delivered in an atraumatic fashion. Shoulders and after coming head were then delivered using the Marceau maneuver. The cord was doubly clamped and cut. The was handed to the Neonatology Team in attendance for the delivery. Attention was then turned to delivery of twin B. Amniotomy was performed and once again, very lightly stained meconium fluid was noted. Twin B was footling breech. The breech was also delivered in an atraumatic fashion and the shoulders and after coming head spontaneously delivered without effort. The cord was doubly clamped and cut. The infant was handed to the second Neonatology Team in attendance for the delivery. Twin A was a vigorous female, weighing 6 pounds 4 ounces with Apgars of 6 and 8 obtained at one and five minutes respectively. Twin B was a vigorous viable male, weighing 5 pounds 14 ounces with Apgars of 7 and 8 obtained at one and five minutes respectively. Both infants were vigorously cleaned and dried on the table. There was vigorous crying noted from both of the babies. Their color was good when they were handed to the Anesthesia Team. The placenta was then manually removed from the uterus. The placenta will be sent to Pathology for evaluation secondary to delivery and dichorionic-diamniotic placentation. The uterus was exteriorized and poor tone was noted. The uterine cavity was cleared of clot and fluid. The low-transverse incision was then packed and vigorous massage was performed. We continued packing until the tone improved. The low-transverse incision was then closed with a running locking ligature of #1 chromic. A second imbricating layer was placed to facilitate strength and hemostasis. The vesicouterine peritoneum was reapproximated to the lower segment. The posterior cul-de-sac and gutters were cleared of clot and fluid. The uterus, fallopian tubes, and ovaries were normal in appearance and no pathology were identified. Seprafilm was applied to the low-transverse incision and to the anterior aspect of the uterus for adhesion prevention. The uterus was returned to the abdomen and good tone and hemostasis was appreciated. The incision was carefully inspected and noted to be hemostatic. Lap, sponge, and needle counts were correct. The peritoneum was then closed with a running ligature of 2-0 Vicryl suture. The rectus muscles were reapproximated in the midline with interrupted ligatures of both 2-0 Vicryl and #1 chromic suture. The fascia was then closed with two ligatures of 0 Vicryl suture, which were tied in the midline. Good fascial integrity was appreciated. The incision was irrigated with copious amount of warm normal saline. Hemostasis of the subcutaneous tissue was obtained with Bovie cauterization. The subcutaneous tissue was then closed in multiple layers with interrupted ligatures of 2-0 plain. The skin was closed with a subcuticular stitch of 4-0 Monocryl. Pressure dressing and ice packs were subsequently placed. Lap, sponge, and needle counts were correct x3. The estimated blood loss was approximately 800 mL. QBL was pending and there were some questions about fluid, which spilled both off the table and on the table. Team debriefing was performed. The patient was taken to the recovery room in good condition. Immediately following surgery, the patient and family were made aware of the surgical procedure and operative findings. Questions were answered to their satisfaction. The babies were both stable and doing well in the NICU. The patient and her very appreciative of the care rendered here at [facility] this morning. Job ID: [id number] [facility]
[2020-04-01] MEDS ORDERED: Ketorolac Tromethamine 30 MG/ML VIAL IVP PRN (15:00)
[2020-04-01] MEDS ORDERED: Sodium Chloride 0.9% 10 ML ONE (16:02)
[2020-04-01] MEDS: Ibuprofen 800 MG TAB PO SCH ×2 (16:49→21:18)
[2020-04-01] MEDS: Lactated Ringer's 1,000 ML IV SCH ×2 (16:49→18:03)
[2020-04-01] MEDS ORDERED: Zolpidem Tartrate 5 MG TAB PO PRN (19:00)
[2020-04-01] MEDS ORDERED: HYDROcodone/Acetaminophen 5/325 mg Tablet PO PRN (19:00)
[2020-04-02] MEDS: diphenhydrAMINE 50 MG/ML VIAL IVP PRN ×2 (02:17→07:30)
[2020-04-02] MEDS: Lactated Ringer's 1,000 ML IV SCH ×4 (05:16→20:49)
[2020-04-02 05:55] LABS: Hemoglobin 9.3 g/dL (12.0-16.0); Mean Corpuscular HGB CONC 32.7 g/dL (32.0-36.0); Mean Corpuscular Hemoglobin 24.2 pg (27.0-31.0); Mean Corpuscular Volume 74.1 fL (78.0-98.0); Mean Platelet Volume 10.9 fL (7.4-10.4); Platelet Count 198 thou/uL (130-400); RBC Distribution Width 14.9 % (11.5-14.5); Red Blood Cell (RBC) Count 3.86 mill/uL (4.20-5.40); White Blood Cell (WBC) Count 10.4 thou/uL (4.8-10.8)
[2020-04-02] MEDS: Ibuprofen 800 MG TAB PO SCH ×3 (06:02→20:48)
[2020-04-02] MEDS ORDERED: Sodium Chloride 0.9% 10 ML ONE (07:21)
[2020-04-02] MEDS ORDERED: Adacel (T-DAP) 0.5 ML SYRINGE IM ONE (07:34)
[2020-04-02] MEDS: Prenatal Vitamin 1 TAB PO SCH (09:17)
[2020-04-02] MEDS: Ferrous Sulfate 325 MG TAB PO SCH ×2 (09:17→20:48)
[2020-04-02] MEDS: Docusate Calcium (SURFAK) 240 MG CAP PO SCH ×2 (09:17→20:48)
--- NOTE | 2020-04-02 11:20 | PDOC.PP ---
Post Progress Note Post Day #: 1 PO intake tolerated: yes Flatus: yes Ambulation: yes Vital Signs (12 hours) Temp Pulse Resp BP Pulse Ox 04/02/20 07:35 98.2 F 77 18 142/84 H 100 04/02/20 04:10 97.6 F 80 16 151/90 H 96 04/02/20 00:56 98.3 F 83 18 130/72 96 Weight Weight 245 lb - Physical Examination General: NAD Cardiovascular: no m/r/g, RRR Respiratory: clear to auscultation bilaterally, non-labored breathing Abdominal: + bowel sounds, lochia, no distention, appropriately TTP Extremities: negative homans (B) Skin: CS incision dry & intact, no rash Neurological: no gross focal deficits Psychiatric: A&Ox3, normal affect Result Diagrams: 04/02/20 05:21 Additional Labs: Post Labs Hep Bs Antigen Non-Reactive S/CO (NonReactive) 04/01/20 03:59 Blood Type O POSITIVE 04/01/20 03:59
[2020-04-02] MEDS: HYDROcodone/Acetaminophen 5/325 mg Tablet PO PRN (22:21)
[2020-04-03] MEDS: Ibuprofen 800 MG TAB PO SCH ×3 (05:47→22:01)
[2020-04-03] MEDS: Prenatal Vitamin 1 TAB PO SCH (10:21)
[2020-04-03] MEDS: Lactated Ringer's 1,000 ML IV SCH ×3 (10:21→23:05)
[2020-04-03] MEDS: Docusate Calcium (SURFAK) 240 MG CAP PO SCH ×2 (10:21→22:02)
[2020-04-03] MEDS: Ferrous Sulfate 325 MG TAB PO SCH ×2 (10:21→22:02)
[2020-04-03] MEDS: HYDROcodone/Acetaminophen 5/325 mg Tablet PO PRN (11:20)
--- NOTE | 2020-04-03 17:27 | PDOC.PP ---
Post Progress Note Post Day #: 2 PO intake tolerated: yes Flatus: yes Ambulation: yes Vital Signs (12 hours) Temp Pulse Resp BP Pulse Ox 04/03/20 16:26 98.0 F 90 16 140/79 04/03/20 08:00 98.1 F 92 16 157/83 H 98 Weight Weight 245 lb - Physical Examination General: NAD Cardiovascular: no m/r/g, RRR Respiratory: clear to auscultation bilaterally Abdominal: + bowel sounds, lochia, no distention Extremities: negative homans (B) Skin: CS incision dry & intact, no rash Neurological: no gross focal deficits Psychiatric: A&Ox3, normal affect Result Diagrams: 04/02/20 05:21 Additional Labs: Post Labs Hep Bs Antigen Non-Reactive S/CO (NonReactive) 04/01/20 03:59 Blood Type O POSITIVE 04/01/20 03:59
[2020-04-03] MEDS: Simethicone Chewable 80 MG TAB PO PRN (20:19)
[2020-04-04] MEDS: Ibuprofen 800 MG TAB PO SCH ×3 (04:53→21:48)
[2020-04-04] MEDS: Simethicone Chewable 80 MG TAB PO PRN ×2 (04:54→21:51)
[2020-04-04] MEDS: Lactated Ringer's 1,000 ML IV SCH ×3 (10:08→21:03)
[2020-04-04] MEDS: Prenatal Vitamin 1 TAB PO SCH (10:50)
[2020-04-04] MEDS: Ferrous Sulfate 325 MG TAB PO SCH ×2 (10:50→21:48)
[2020-04-04] MEDS: Docusate Calcium (SURFAK) 240 MG CAP PO SCH ×2 (10:50→21:48)
[2020-04-05] MEDS: Ibuprofen 800 MG TAB PO SCH ×2 (06:04→13:59)
[2020-04-05] MEDS: Simethicone Chewable 80 MG TAB PO PRN (06:04)
[2020-04-05] MEDS: Ferrous Sulfate 325 MG TAB PO SCH (09:00)
[2020-04-05] MEDS: Lactated Ringer's 1,000 ML IV SCH (09:28)
[2020-04-05] MEDS: Prenatal Vitamin 1 TAB PO SCH (09:29)
[2020-04-05] MEDS: Docusate Calcium (SURFAK) 240 MG CAP PO SCH (09:30)
[2020-04-05 12:44] VITALS: BP 149/86; TEMP 97.5
== END 2020-04-05 18:22 | disposition home or self-care (01) | DRG 786 ==
LOC: L&D/OP 02:30 → L&D 03:25 → 3SW 10:44
PROVIDERS: ADMIT Obstetrics & Gynecology; ATTEND Obstetrics & Gynecology
PROC: 10D00Z1 Extraction of Products of Conception, Low, Open Approach (ICD-10-PCS; principal; 2020-04-01)
DX: O34.211 Maternal care for low transverse scar from previous cesarean delivery (principal); O60.14X0 Preterm labor third trimester with preterm delivery third trimester, not applicable or unspecified; Z20.828 Contact with and (suspected) exposure to other viral communicable diseases; O30.043 Twin pregnancy, dichorionic/diamniotic, third trimester; O99.62 Diseases of the digestive system complicating childbirth; O13.4 Gestational [pregnancy-induced] hypertension without significant proteinuria, complicating childbirth; N85.8 Other specified noninflammatory disorders of uterus; K66.0 Peritoneal adhesions (postprocedural) (postinfection); Z3A.35 35 weeks gestation of pregnancy; Z37.0 Single live birth
CPT/HCPCS: 36415; 51702; 85027; 86780; 86850; 86900; 86901; 87340; 88307; 99285; J0290; J1200; J2210; J2270; J2405; J3490; U0002

== ENCOUNTER 2020-04-17 21:19 | Inpatient (IN) | payer OTHER ==
[2020-04-17] MEDS ORDERED: Cefepime 2 GM VIAL ONE (21:57)
[2020-04-17] MEDS ORDERED: Vancomycin 1 GM/200 ML BAG ONE (21:57)
[2020-04-17 22:06] LABS: Prothrombin Time 13.5 sec (12.0-14.7)
[2020-04-17] MEDS ORDERED: Acetaminophen 500 MG TAB ONE ×2 (22:07→22:10)
[2020-04-17 22:11] LABS: #Lymphocytes 1.7 thou/uL (1.20-3.40); #Monocytes 0.8 thou/uL (0.11-0.59); #Neutrophils 7.8 thou/uL (1.40-6.50); %Basophils 0.2 % (0.0-1.0); %Eosinophils 0.1 % (0.0-10.0); %Lymphocytes 16.2 % (21.0-51.0); %Monocytes 7.6 % (0.0-10.0); Hemoglobin 10.4 g/dL (12.0-16.0); Mean Corpuscular HGB CONC 32.6 g/dL (32.0-36.0); Mean Corpuscular Hemoglobin 24.3 pg (27.0-31.0); Mean Corpuscular Volume 74.7 fL (78.0-98.0); Mean Platelet Volume 9.7 fL (7.4-10.4); Platelet Count 261 thou/uL (130-400); RBC Distribution Width 16.9 % (11.5-14.5); Red Blood Cell (RBC) Count 4.28 mill/uL (4.20-5.40); White Blood Cell (WBC) Count 10.2 thou/uL (4.8-10.8)
[2020-04-17 22:36] LABS: Bacteria/HPF None Seen HPF (None Seen); Bilirubin Negative (Negative); Blood, Urine Trace (Negative); Clarity Clear (Clear); Glucose, Urine (Dipstick) Normal (Negative); Ketone, Urine Negative (Negative); Leukocyte Negative Leu/uL (Negative); Nitrite Negative (Negative); Protein, Urine (Dipstick) 30 mg/dL (Neg-Trace); RBC/HPF None Seen HPF (0-3); Specific Gravity, Urine 1.016 (1.002-1.036); Squamous Epithelial None Seen HPF (0-3); Urobilinogen Normal mg/dL (Less than 2); WBC/HPF 0-3 HPF (0-3); pH, Urine 6.5 (5.0-9.0)
[2020-04-17 23:02] LABS: ALT (SGPT) 24 U/L (8-55); AST (SGOT) 15 U/L (5-34); Albumin 4.1 g/dL (3.5-5.0); Alkaline Phosphatase 134 U/L (40-110); Anion Gap 14 mmol/L (10-20); BUN (Urea Nitrogen) 13 mg/dL (7.0-18.7); Bilirubin, Total 0.5 mg/dL (0.2-1.2); Calc. Creatinine Clearance 0 mL/min (70-130); Calcium 8.3 mg/dL (7.8-10.44); Carbon Dioxide 20 mmol/L (22-29); Chloride 105 mmol/L (98-107); Estimated GFR-MDRD Greater than 90; Glucose 113 mg/dL (70-105); Potassium 3.4 mmol/L (3.5-5.1); Protein, Total 7.1 g/dL (6.0-8.3); Sodium 136 mmol/L (136-145)
--- NOTE | 2020-04-17 23:03 | ULT ---
Pelvic ultrasound: 04/17/2020 HISTORY: bleeding TECHNIQUE: Multiplanar grayscale sonographic imaging of the pelvis obtained with transabdominal imagi ng. FINDINGS: Neither ovary could be visualized on this transabdominal scan. There is significant fluid e chogenicity within an expanded endometrial and endocervical canal. The uterus measures 14.6 x 7.4 x 7.3 cm. Doppler interrogation of the endometrial and endocervical canal demonstrate no vascular tissue. The e xpanded endometrial canal measures 2.5 cm in transverse dimension. IMPRESSION: Expanded hypoechoic endometrial and endocervical canal. This could represent fluid/hemorr rodri and/or retained products of conception.
[2020-04-18] MEDS ORDERED: Gentamicin 80 MG/2 ML VIAL IVPB SCH (01:04)
[2020-04-18] MEDS ORDERED: Ibuprofen 800 MG TAB PO PRN (01:04)
[2020-04-18] MEDS ORDERED: Potassium Chloride 20 MEQ TAB PO SCH (01:15)
[2020-04-18] MEDS: Lactated Ringer's 1,000 ML IV SCH ×4 (01:23→23:26)
[2020-04-18] MEDS: Clindamycin/D5W 900 MG in Premix Bag 1 BAG IVPB SCH ×3 (04:06→18:02)
--- NOTE | 2020-04-18 06:03 | HP ---
REGULAR PHYSICIAN: Krissy Lind MD CHIEF COMPLAINT: Fever at home. HISTORY OF PRESENT ILLNESS: Ms. Rosado is a 29-year-old white G3, now P3, status post repeat section by Dr. Bobby Lind on 04/01/2020 for twins. She states that she did not feel well at home and had a temperature around 102.1. She has also noted increased lochia as well as abdominal cramping. She denies change in bowel or bladder habits. PAST MEDICAL HISTORY: None. PAST SURGICAL HISTORY: x2, D and C, knee arthroscopy, and cholecystectomy. CURRENT MEDICATIONS: 1. Tylenol No. 3. 2. Motrin. 3. Procardia. ALLERGIES: NO KNOWN ALLERGIES. SOCIAL HISTORY: Denies tobacco, alcohol, or drug use. FAMILY HISTORY: Unremarkable. REVIEW OF SYSTEMS: Denies nausea or vomiting. Reports a fever at home as above. Denies change in bowel or bladder habits. PHYSICAL EXAMINATION: VITAL SIGNS: Blood pressure is now 130/81, pulse 122, and temperature on admission is 101.7. GENERAL: She is in mild discomfort. CHEST: Clear to auscultation. CARDIOVASCULAR: Regular rate and rhythm. ABDOMEN: Shows the incision to be healing well, although there is fundal tenderness. PELVIC: Examination by the ER physician was unable to be accomplished due to the patient's discomfort. LABORATORY DATA: White count 10.2, hemoglobin and hematocrit 10.4 and 32.0, and platelet count 261,000. PT and PTT are normal at 13.5 and 35.0. BUN and creatinine are 13 and 0.65 respectively. Glucose 113. Lactic acid 1.1. Urinalysis shows a specific gravity of 1.016 with 1+ protein, normal glucose, negative ketones, trace blood, negative nitrites, and negative leukocyte esterase. Microscopic is unremarkable with no bacteria seen. Pelvic ultrasound shows the uterus measuring 14.6 x 7.4 x 7.3. There is a fluid echogenicity in the endometrial and endocervical canal. ASSESSMENT: endometritis. PLAN: The patient will be admitted at this time and started on gentamicin and clindamycin. She will be observed closely. Dr. Tomlin, who is covering for Dr. Lind has been notified of this admission. Job ID: [id number]
[2020-04-18 06:35] LABS: #Basophils 0.1 thou/uL (0.0-0.2); #Monocytes 0.8 thou/uL (0.11-0.59); %Basophils 0.6 % (0.0-1.0); %Eosinophils 0.5 % (0.0-10.0); %Lymphocytes 22.9 % (21.0-51.0); %Monocytes 8.7 % (0.0-10.0); %Neutrophils 67.4 % (42.0-75.0); Hemoglobin 9.3 g/dL (12.0-16.0); Mean Corpuscular Hemoglobin 23.1 pg (27.0-31.0); Mean Corpuscular Volume 74.5 fL (78.0-98.0); Mean Platelet Volume 9.7 fL (7.4-10.4); Platelet Count 266 thou/uL (130-400); RBC Distribution Width 16.7 % (11.5-14.5); Red Blood Cell (RBC) Count 4.02 mill/uL (4.20-5.40); White Blood Cell (WBC) Count 8.9 thou/uL (4.8-10.8)
[2020-04-18 07:01] LABS: Anion Gap 11 mmol/L (10-20); BUN (Urea Nitrogen) 8 mg/dL (7.0-18.7); Calc. Creatinine Clearance 0 mL/min (70-130); Calcium 7.9 mg/dL (7.8-10.44); Carbon Dioxide 19 mmol/L (22-29); Chloride 111 mmol/L (98-107); Estimated GFR-MDRD Greater than 90; Glucose 108 mg/dL (70-105); Potassium 4.1 mmol/L (3.5-5.1); Sodium 137 mmol/L (136-145)
[2020-04-18] MEDS: Acetaminophen 325 MG TAB PO PRN ×2 (07:10→23:23)
[2020-04-18] MEDS: Ferrous Sulfate 325 MG TAB PO SCH ×2 (08:31→16:55)
[2020-04-18] MEDS: Docusate Calcium (SURFAK) 240 MG CAP PO SCH ×2 (08:31→23:24)
[2020-04-18] MEDS: Prenatal Vitamin 1 TAB PO SCH (08:31)
[2020-04-18] MEDS ORDERED: FLU VACC QS2020-21(6MOS UP)/PF 60 MCG/0.5 ML SYRINGE IM ONE (09:00)
[2020-04-19] MEDS: Clindamycin/D5W 900 MG in Premix Bag 1 BAG IVPB SCH ×3 (01:07→17:06)
[2020-04-19] MEDS: Lactated Ringer's 1,000 ML IV SCH ×2 (06:31→11:01)
[2020-04-19] MEDS: Ferrous Sulfate 325 MG TAB PO SCH ×2 (09:40→17:08)
[2020-04-19] MEDS: Prenatal Vitamin 1 TAB PO SCH (09:41)
[2020-04-19] MEDS: Docusate Calcium (SURFAK) 240 MG CAP PO SCH (09:41)
[2020-04-20] MEDS: Docusate Calcium (SURFAK) 240 MG CAP PO SCH ×2 (00:23→09:13)
[2020-04-20] MEDS: Clindamycin/D5W 900 MG in Premix Bag 1 BAG IVPB SCH ×2 (01:16→10:17)
[2020-04-20] MEDS: Lactated Ringer's 1,000 ML IV SCH (04:00)
--- NOTE | 2020-04-20 08:37 | DIS ---
DATE OF ADMISSION: 04/17/2020 DATE OF DISCHARGE: 04/20/2020 ADMITTING PHYSICIAN: Aashish Osorio MD ATTENDING STAFF PHYSICIAN: Krissy Lind MD ADMIT DIAGNOSES: 1. Fever. 2. endometritis. 3. Status post repeat for twins. DISCHARGE DIAGNOSES: 1. Fever. 2. endometritis. 3. Status post repeat for twins. PROCEDURE: IV antibiotic therapy. DISCHARGE INSTRUCTIONS: No heavy lifting greater than 10 to 15 pounds. No driving on pain medications. Pelvic rest x6 weeks. Notify physician for temperature greater than 100.4, heavy vaginal bleeding or discharge, severe abdominal pain or back pain, signs or symptoms of incision infection or as needed. FOLLOWUP: Follow up in 72 hours of [facility] [employer] with Dr. Lind. HOSPITAL COURSE: Mrs. Yenny Rosado is a very pleasant 29-year-old white female followed in my clinic for [employer] care. She is status post a repeat approximately 2 weeks ago for twin delivery. The patient reported that she began to feel bad on Saturday and spiked a fever to 102 on Saturday afternoon. She presented to the emergency room for evaluation. She was seen and evaluated by Dr. Aashish Osorio, who is hospitalist on-call, as I was out of town. Dr. Tomlin was covering for me. Dr. Osorio felt that the patient had uterine tenderness and at that time, temperature of 101.6. She was admitted with a working diagnosis of endometritis. The patient was started on IV antibiotic therapy including Ampicillin and gentamicin. She has defervesced nicely. She is discharged home on the morning of the third hospital day. Her blood cultures are negative. She is feeling much better. She is ambulating, voiding, and tolerating p.o. I will continue her antibiotics for a full 10 days. Script was called to her pharmacy for Augmentin 875 one p.o. b.i.d. x10 days. She will follow up with me in 72 hours for further evaluation. She has been given strict precautions as outlined above. She and her were very appreciative of care received here at [facility], and she will follow up with me as scheduled. Job ID: [id number] [facility]
[2020-04-20] MEDS: Ferrous Sulfate 325 MG TAB PO SCH (09:12)
[2020-04-20] MEDS: Prenatal Vitamin 1 TAB PO SCH (09:13)
[2020-04-20 12:14] VITALS: BP 130/83; TEMP 98.9
[2020-04-21 20:42] LABS: Chlam.trachomatis by PCR,Urine Inconclusive (NotDetected)
== END 2020-04-20 12:05 | disposition home or self-care (01) | DRG 776 ==
LOC: ERS 21:19 → 3SW 23:50 → 3SE 04-18 07:21
PROVIDERS: ADMIT Obstetrics & Gynecology; ATTEND Obstetrics & Gynecology
DX: O86.12 Endometritis following delivery (principal); Z90.49 Acquired absence of other specified parts of digestive tract
CPT/HCPCS: 36415; 51701; 76856; 80048; 80053; 81003; 81015; 83605; 85025; 85610; 85730; 87040; 87086; 87491; 87591; 96365; J0692; J1580; J3370; J3490